=== PATIENT | female | born 1975 | race African-American/Black ===

== ENCOUNTER → 2024-09-14 08:04 | Outpatient (REF) | payer BC, SELFPAY | LOC: HWWDC 08:04 | PROVIDERS: ATTENDING PHYSICIAN Family Medicine Adult Medicine | DX: E11.9 Type 2 diabetes mellitus without complications (principal); E78.2 Mixed hyperlipidemia; I10 Essential (primary) hypertension; M54.2 Cervicalgia | CPT/HCPCS: 72040 ==

== ENCOUNTER → 2024-10-08 09:59 | Outpatient (REF) | payer BC, SELFPAY | LOC: WDC 09:59 | PROVIDERS: ATTENDING PHYSICIAN Family Medicine Adult Medicine | DX: R92.8 Other abnormal and inconclusive findings on diagnostic imaging of breast (principal) | CPT/HCPCS: 76642 ==

== ENCOUNTER → 2024-10-11 09:56 | Outpatient (REF) | payer BC, SELFPAY ==
--- NOTE | 2024-10-11 14:16 | OID.BR.INTR ---
[facility] Breast Navigator - Initial
- -
Date of Contact: 10/11/24
Met with patient. Patient given written information on navigator services available at [facility]. Will follow up as needed per protocol.
== END ==
LOC: WDC 09:56
PROVIDERS: ATTENDING PHYSICIAN Family Medicine Adult Medicine
DX: N63.11 Unspecified lump in the right breast, upper outer quadrant (principal)
CPT/HCPCS: 88305; 19083; 88341; 88360